=== PATIENT | male | born 1985 | race Two or more races ===

== ENCOUNTER → 2018-06-07 | Emergency (ER) | payer MEDICARE, OTHER ==
[~2018-06-07] VITALS: Ht 167.6 cm; Wt 65.8 kg
--- NOTE | 2018-06-07 02:00 | NUR ---
YELLING "LEAVE ME ALONE" WHILE IN LOBBY.
--- NOTE | 2018-06-07 03:05 | NUR ---
CALLED FOR ROOM ASSIGNMENT. APPEARS SLEEPING WITH HEAD COVERED WITH BLANKET. REFUSES TO STAND UP AND COVERS SELF WITH BLANKET.
--- NOTE | 2018-06-07 04:00 | NUR ---
REMAINS SLEEPING IN LOBBY. NO DISTRESS NOTED.
--- NOTE | 2018-06-07 05:15 | NUR ---
STILL SLEEPING IN LOBBY. AFRAID TO WAKE PT UP DUE TO PREVIOUS OUTBURSTS OF "LEAVE ME ALONE". INFORMED
--- NOTE | 2018-06-07 06:25 | NUR ---
YELLING IN LOBBY STATING "I WANT MY SLEEPING BAG, YOU TOOK IT FROM ME". INFORMED HE CAME IN WITH NO SLEEPING BAG, PROBABLY NEED TO CALL THE AMBULANCE STAFF THAT BROUGHT HIM IN. KEEPS YELLING "NO, YOU GUYS HAVE IT. GET OUT"
[2018-06-07 07:43] VITALS: BP 124/66
== END | disposition home or self-care (01) ==
LOC: ER 01:35
DX: M79.10 Myalgia, unspecified site (principal); Z60.2 Problems related to living alone
CPT/HCPCS: 99283; A4606; Z7502; Z7610